=== PATIENT | male | born 2000 ===

== ENCOUNTER 2022-01-04 15:40 | Emergency (ER) | payer OTHER ==
[~2022-01-04] VITALS: Ht 175.3 cm; Wt 64.5 kg
[2022-01-04 17:02] LABS: Urine Bacteria NONE SEEN /hpf (None Seen); Urine Blood Negative /uL (Negative); Urine Mucus FEW (None Seen); Urine Specific Gravity 1.021 (1.001-1.035); Urine WBC <1 /hpf (0 - 3)
[2022-01-04] MEDS ORDERED: ONDANSETRON ODT 4 MG TAB PO ONE (18:00)
[2022-01-04] MEDS ORDERED: HYDROcodone-ACET 10/325MG TAB PO ONE (18:00)
[2022-01-04 19:52] VITALS: BP 140/93
== END 2022-01-04 20:01 | disposition home or self-care (01) ==
LOC: ER 15:40
DX: N43.3 Hydrocele, unspecified (principal); N45.1 Epididymitis; N50.811 Right testicular pain
CPT/HCPCS: 76870; 81001